=== PATIENT | male | born 1995 | race Caucasian/White ===

== ENCOUNTER 2016-11-05 12:58 | Emergency (ER) | payer SELFPAY ==
[~2016-11-05] VITALS: Ht 180.3 cm; Wt 100.0 kg
[2016-11-05 12:59] VITALS: BP 139/75; PULSE 62; RESP 20; TEMP 99.9; O2SAT 99
[2016-11-05] MEDS ORDERED: CLIN1CAP5 PO ×2 (13:22→13:26)
[2016-11-05] MEDS ORDERED: POLY10O RIGHT EYE (13:22)
[2016-11-05] MEDS ORDERED: IBUP800T23 PO (13:22)
--- NOTE | 2016-11-05 13:23 | PD ---
HPI Chief Complaint: Eye Problems/Injury Time Seen by Provider: 13:18 Travel History International Travel<30 days: No Contact w/Intl Traveler<30days: No Traveled to known affect area: No History of Present Illness HPI 21-year-old male presents emergency Department with complaint of swelling and redness to his right upper eyelid for the last 4-5 days. Patient reports having a pimple-like lesion that started on his right upper eyelid 5 days ago that he popped and scratched at and then it formed a couple more pimples, which he also scratched at. Reports an area to his eyelid that drains purulent drainage and he has been applying Neosporin to the area. Reports blurry vision. Reports waking up in the mornings with his eye crusted shut. Reports copious amounts of clear drainage. Reports it irritation and redness. Denies fever, vomiting. Denies eye pain. Has not taken any medications or tried any other treatment, other than the Neosporin for symptom management. No known allergies. Has no other medical complaints. No other modifying factors or associated signs and symptoms. [facility] Social History Tobacco Use: No Allergies-Medications (Allergen,Severity, Reaction): Coded Allergies: No Known Allergies (Unverified , 11/05/16) Reported Meds & Prescriptions Reported Meds & Active Scripts Active Clindamycin (Clindamycin HCl) 150 Mg Cap 450 Mg PO Q6HR 10 Days Ibuprofen 800 Mg Tab 800 Mg PO Q6HR PRN Polytrim Opth Drops (Polymyxin/Trimethoprim Sulfate) 10,000-0.1 Unit/Ml-% Soln 2 Drop RIGHT EYE Q6HR 7 Days Review of Systems Except as stated in HPI: all other systems reviewed are Neg Physical Exam Narrative GENERAL: Well-nourished, well-developed male patient, in no acute distress; low-grade fever 99.9; nontoxic-appearing SKIN: Warm and dry. HEAD: Atraumatic. Normocephalic. EYES: Pupils equal and round at 3 mm with brisk reaction. PERRLA. EOMI. Visual acuity left 20/20, right 20/20, both 20/20. Right eye with scleral erythema; and with upper lid edema and erythema, consistent with preseptal cellulitis of the upper lid. No orbital tenderness, erythema or cellulitis. Right eye without photophobia. No consensual photophobia. No scleral icterus. Clear drainage. Isidro lamp exam normal. ENT: Mucosa pink and moist. Airway patent. NECK: Trachea midline. CARDIOVASCULAR: Regular rate. RESPIRATORY: No accessory muscle use. GASTROINTESTINAL: Rounded. NEUROLOGICAL: Awake and alert. Oriented 3. No obvious cranial nerve deficits. Motor grossly within normal limits. Normal speech. PSYCHIATRIC: Appropriate mood and affect; insight and judgment normal. Data Data Last Documented VS Vital Signs Date Time Temp Pulse Resp B/P Pulse Ox O2 Delivery O2 Flow Rate FiO2 11/05/16 12:59 99.9 62 20 139/75 99 Room Air Orders Wound Culture And Gram Stain (11/05/16 13:26) Tetanus/Diphtheria Tox Adult (Tetanus/Di (11/05/16 13:30) MDM Medical Decision Making Medical Screen Exam Complete: Yes Emergency Medical Condition: Yes Medical Record Reviewed: Yes Differential Diagnosis Preseptal cellulitis, wound infection, periorbital cellulitis Narrative Course 21-year-old male with an infected wound to his right upper eyelid with preseptal cellulitis. Patient has low-grade fever of 99.9 in the ER. He denies fever, vomiting. Patient is nontoxic-appearing. I offered the patient a nonnarcotic while in the ER and he declined. Clindamycin, Polytrim eyedrops, ibuprofen prescribed for home. Patient verbalizes understanding and agreement with treatment plan. Patient is medically cleared and stable for discharge. Discussed reasons to return to the emergency department. Instructed patient to follow up with primary care provider. Patient agrees with treatment plan. The patients vital signs are stable and the patient is stable for outpatient follow- up and treatment. Patient discharged home, stable and in no acute distress. Diagnosis Primary Impression: Superficial injury of eyelid with infection Qualified Code: S00.201A - Superficial injury of eyelid with infection, right , initial encounter Additional Impression: Preseptal cellulitis of right upper eyelid Referrals: [facility] [employer] Primary Care Physician Patient Instructions: Cellulitis (ED), General Instructions Departure Forms: Tests/Procedures, Work Release Enter return to work date: Nov 07, 2016 Additional Instructions: Antibiotics as prescribed Ibuprofen or Tylenol as directed and as needed to reduce pain Refrigerated eye drops as needed to reduce pain Cool compresses to the eye as needed to reduce pain Follow-up with ophthalmology Primary care provider Return to the emergency department immediately with worsening of symptoms Med/Other Pt SpecificInfo: Prescription(s) given Scripts Clindamycin 150 Mg [id number] Mg PO Q6HR 10 Days Ref 0 Prov:Jeanine Mcbride 11/05/16 Ibuprofen 800 Mg [id number] Mg PO Q6HR PRN (PAIN) #30 TAB Ref 0 Prov:Jeanine Mcbride 11/05/16 Polymyxin B-Trimethoprim Opth Drops (Polytrim Opth Drops)10,000-0.1 Unit/Ml-% Soln2 Drop RIGHT EYE Q6HR 7 Days Ref 0 Prov:Jeanine Mcbride 11/05/16 Disposition: 01 DISCHARGE HOME Condition: Stable Jeanine Mcbride Nov 05, 2016 13:23
[2016-11-05] MEDS ORDERED: TETANUS/DIPHTHERIA TOXOID ADULT 0.5 ML VIAL IM ONE (13:30)
== END 2016-11-05 13:41 | disposition home or self-care (01) ==
LOC: NEPK 12:58
DX: S00.201A Unspecified superficial injury of right eyelid and periocular area, initial encounter (principal); L03.213 Periorbital cellulitis; X58.XXXA Exposure to other specified factors, initial encounter; Z23 Encounter for immunization
CPT/HCPCS: 87070; 87205; 90471; 90714